=== PATIENT | female | born 1955 | race Caucasian/White ===

== ENCOUNTER → 2016-10-13 17:26 | Outpatient (CLI) | payer OTHER | END | disposition home or self-care (01) | LOC: D.MAMMO 14:00 | DX: Z85.3 Personal history of malignant neoplasm of breast (principal) ==

== ENCOUNTER → 2018-09-23 17:55 | Outpatient (CLI) | payer MEDICARE | END | disposition home or self-care (01) | LOC: D.MAMMO 14:30 | DX: Z85.3 Personal history of malignant neoplasm of breast (principal) ==

== ENCOUNTER 2020-03-15 18:00 | Outpatient (CLI) | payer MEDICARE | END 2020-03-15 23:59 | disposition home or self-care (01) | LOC: D.MAMMO 18:00 | PROVIDERS: ATTEND Family Medicine | DX: Z85.3 Personal history of malignant neoplasm of breast (principal) ==